=== PATIENT | female | born 1965 | race Caucasian/White ===

== ENCOUNTER 2017-11-04 14:01 | Emergency (ER) | payer BC ==
[2017-11-04] MEDS ORDERED: Dexamethasone 4 mg/ml Vial ONE (16:44)
--- NOTE | 2017-11-04 17:06 | RAD ---
SOFT TISSUE NECK TWO VIEWS: 11/04/17 HISTORY: 52-year-old female with upper respiratory infection with throat hurting. Two views of the soft tissue neck demonstrate no evidence for retropharyngeal soft tissue swelling. T he epiglottis is unremarkable. No obvious opaque foreign body. IMPRESSION: Unremarkable soft tissue neck. POS: [facility]
[2017-11-04] MEDS ORDERED: Ibuprofen 800 MG TAB ONE (17:26)
[2017-11-04 17:34] LABS: #Basophils 0.1 thou/uL (0.0-0.2); #Eosinphils 0.1 thou/uL (0.0-0.7); #Lymphocytes 2.7 thou/uL (1.20-3.40); #Monocytes 0.4 thou/uL (0.11-0.59); #Neutrophils 3.5 thou/uL (1.40-6.50); %Basophils 0.8 % (0.0-1.0); %Lymphocytes 39.8 % (21.0-51.0); %Monocytes 5.9 % (0.0-10.0); Hematocrit 46.3 % (36.0-47.0); Mean Platelet Volume 7.8 fL (7.4-10.4); Red Blood Cell (RBC) Count 4.92 mill/uL (4.20-5.40); White Blood Cell (WBC) Count 6.9 thou/uL (4.8-10.8)
[2017-11-04 17:52] LABS: Anion Gap 16 mmol/L (10-20); BUN (Urea Nitrogen) 13 mg/dL (9.8-20.1); Calc. Creatinine Clearance 0 mL/min (70-130); Calcium 9.5 mg/dL (7.8-10.44); Carbon Dioxide 25 mmol/L (22-29); Chloride 103 mmol/L (98-107); Estimated GFR-MDRD 76
== END 2017-11-04 18:42 | disposition home or self-care (01) ==
LOC: ERS 14:01
DX: J11.1 Influenza due to unidentified influenza virus with other respiratory manifestations (principal); E03.9 Hypothyroidism, unspecified; K21.9 Gastro-esophageal reflux disease without esophagitis; I10 Essential (primary) hypertension; F32.9 Major depressive disorder, single episode, unspecified; Z79.899 Other long term (current) drug therapy
CPT/HCPCS: 36415; 70360; 80048; 85025; 96372; J1100

== ENCOUNTER 2018-09-06 22:37 | Emergency (ER) | payer BC ==
[2018-09-06] MEDS ORDERED: Pantoprazole 40 MG VIAL ONE (23:21)
[2018-09-06] MEDS ORDERED: diphenhydrAMINE 50 MG/ML VIAL ONE (23:21)
[2018-09-06] MEDS ORDERED: Metoclopramide HCl 10 MG/2 ML VIAL ONE (23:21)
[2018-09-06] MEDS ORDERED: Dicyclomine 20 MG TAB ONE (23:21)
--- NOTE | 2018-09-07 00:06 | ULT ---
RIGHT UPPER QUADRANT ULTRASOUND: 09/06/18 HISTORY: Right upper quadrant abdominal pain with nausea, vomiting and diarrhea. FINDINGS: The liver demonstrates diffuse increased echogenicity with coarsened echotexture related to diffuse f atty infiltration which does limit evaluation of the hepatic parenchyma. The liver is enlarged in craft manager niocaudal dimensions measuring 22 cm. No gallbladder calculi are seen. There is no gallbladder wall thickening or pericholecystic fluid deb ntified. The common duct measures 0.5 cm in diameter which is within normal limits. The limited visualized portions of the pancreas, limited visualized portions of the IVC, and right ki dney demonstrate a normal sonographic appearance. The right kidney measures 10.7 cm in length. IMPRESSION: 1. Hepatomegaly with diffuse fatty infiltration of the liver. 2. No gallbladder calculi are seen, and the common duct is normal in caliber. POS: [facility]
== END 2018-09-07 01:20 | disposition home or self-care (01) ==
LOC: ERS 22:37
DX: R11.2 Nausea with vomiting, unspecified (principal); E03.9 Hypothyroidism, unspecified; K21.9 Gastro-esophageal reflux disease without esophagitis; I10 Essential (primary) hypertension; F32.9 Major depressive disorder, single episode, unspecified; Z79.899 Other long term (current) drug therapy
CPT/HCPCS: 76705; 96365; 96375; C9113; J1200; J2765

== ENCOUNTER 2019-07-05 19:03 | Emergency (ER) | payer BC ==
[2019-07-05 19:56] LABS: #Basophils 0.1 thou/uL (0.0-0.2); #Eosinphils 0.2 thou/uL (0.0-0.7); #Lymphocytes 3.4 thou/uL (1.20-3.40); #Monocytes 0.6 thou/uL (0.11-0.59); #Neutrophils 7.7 thou/uL (1.40-6.50); %Basophils 0.4 % (0.0-1.0); %Eosinophils 1.9 % (0.0-10.0); %Lymphocytes 28.6 % (21.0-51.0); %Monocytes 4.9 % (0.0-10.0); %Neutrophils 64.2 % (42.0-75.0); Hemoglobin 14.9 g/dL (12.0-16.0); Mean Corpuscular HGB CONC 34.1 g/dL (32.0-36.0); Mean Corpuscular Hemoglobin 31.3 pg (27.0-31.0); Mean Corpuscular Volume 91.7 fL (78.0-98.0); Mean Platelet Volume 8.9 fL (7.4-10.4); Platelet Count 251 thou/uL (130-400); RBC Distribution Width 12.3 % (11.5-14.5); Red Blood Cell (RBC) Count 4.76 mill/uL (4.20-5.40); White Blood Cell (WBC) Count 11.9 thou/uL (4.8-10.8)
[2019-07-05] MEDS ORDERED: Promethazine HCl 25 MG/ML VIAL ONE (20:12)
[2019-07-05 20:17] LABS: Acetaminophen Less than 6.0 mcg/mL (10.0-30.0); Alcohol Less than 10 mg/dL (Less than 10); Salicylate Less than 8.0 mg/dL (15.0-30.0)
[2019-07-05] MEDS ORDERED: chlordiazePOXIDE HCl 25 MG CAP ONE (20:21)
--- NOTE | 2019-07-05 20:28 | CT ---
HEAD CT WITHOUT CONTRAST: 07/05/19 COMPARISON: 09/22/14. HISTORY: Altered mental status. FINDINGS: No parenchymal hemorrhage. No extra-axial hematoma. No midline shift. Basilar cisterns are patent. Brain volume, age appropriate. Cortical dailey-white matter differentiation is preserved. No evidence of hydrocephalus. Adequate aeration of the sinuses and mastoid air cells. Calvarium is intact. IMPRESSION: No acute intracranial process. POS: [facility]
[2019-07-05 20:35] LABS: ALT (SGPT) 31 U/L (8-55); AST (SGOT) 31 U/L (5-34); Albumin 4.2 g/dL (3.5-5.0); Alkaline Phosphatase 109 U/L (40-150); Anion Gap 18 mmol/L (10-20); BUN (Urea Nitrogen) 15 mg/dL (9.8-20.1); Bilirubin, Total 0.4 mg/dL (0.2-1.2); Calc. Creatinine Clearance 0 mL/min (70-130); Calcium 9.7 mg/dL (7.8-10.44); Carbon Dioxide 21 mmol/L (22-29); Chloride 103 mmol/L (98-107); Estimated GFR-MDRD 71; Globulin 3.7 g/dL (2.4-3.5); Glucose 111 mg/dL (70-105); Magnesium 2.1 mg/dL (1.6-2.6); Potassium 3.5 mmol/L (3.5-5.1); Protein, Total 7.9 g/dL (6.0-8.3); Sodium 138 mmol/L (136-145)
[2019-07-05 20:51] LABS: Bilirubin Negative (Negative); Blood, Urine Negative (Negative); Clarity Clear (Clear); Glucose, Urine (Dipstick) Normal (Negative); Leukocyte Negative Leu/uL (Negative); Nitrite Negative (Negative); Protein, Urine (Dipstick) Negative (Neg-Trace); Urobilinogen Normal mg/dL (Less than 2)
[2019-07-05 20:52] LABS: Pregnancy Test - Urine (BHCG) Negative (Negative); Pregu Control Background? CLEAR/WHITE (CLR/WHITE); Pregu Control Bar Appear? YES (CONTROL BAR); Specific Gravity 1.021 (1.002-1.036)
[2019-07-05 20:59] LABS: Amphetamine Not Detected (NotDetected); Barbiturates Screen Not Detected (NotDetected); Benzodiazepine Screen Not Detected (NotDetected); Cocaine Metabolite Screen Not Detected (NotDetected); Medtox Control Line Valid? VALID (VALID); Medtox Reader # READER 4; Methadone Not Detected (NotDetected); Methamphetamine Not Detected (NotDetected); Opiate Screen Not Detected (NotDetected); Oxycodone Screen Not Detected (NotDetected); Phencyclidine (PCP) Not Detected (NotDetected); THC/Cannabinoid Screen Not Detected (NotDetected); Tricyclic Screen Not Detected (NotDetected)
== END 2019-07-05 22:33 | disposition home or self-care (01) ==
LOC: ERS 19:03
DX: G40.909 Epilepsy, unspecified, not intractable, without status epilepticus (principal); F43.9 Reaction to severe stress, unspecified; E03.9 Hypothyroidism, unspecified; K21.9 Gastro-esophageal reflux disease without esophagitis; I10 Essential (primary) hypertension; F32.9 Major depressive disorder, single episode, unspecified; Z79.82 Long term (current) use of aspirin; Z79.899 Other long term (current) drug therapy
CPT/HCPCS: 70450; 80053; 80306; 80307; 81003; 81025; 83735; 84146; 85025; 96374; J2550

== ENCOUNTER 2020-05-06 10:08 | Observation (INO) | payer BC ==
[2020-05-06] MEDS ORDERED: Morphine 4 MG/ML VIAL ONE ×2 (11:16→12:48)
[2020-05-06] MEDS ORDERED: Famotidine/PF 20 mg/2ml Vial ONE (11:16)
[2020-05-06] MEDS ORDERED: Ondansetron PF 4 MG/2 ML Vial ONE (11:16)
[2020-05-06 11:19] LABS: #Basophils 0.1 thou/uL (0.0-0.2); #Eosinphils 0.2 thou/uL (0.0-0.7); #Lymphocytes 2.4 thou/uL (1.20-3.40); #Monocytes 0.4 thou/uL (0.11-0.59); #Neutrophils 5.8 thou/uL (1.40-6.50); %Basophils 0.8 % (0.0-1.0); %Eosinophils 2.1 % (0.0-10.0); %Lymphocytes 26.5 % (21.0-51.0); %Monocytes 4.9 % (0.0-10.0); %Neutrophils 65.6 % (42.0-75.0); Hemoglobin 15.4 g/dL (12.0-16.0); Mean Corpuscular HGB CONC 32.5 g/dL (32.0-36.0); Mean Corpuscular Hemoglobin 30.8 pg (27.0-31.0); Mean Corpuscular Volume 94.8 fL (78.0-98.0); Mean Platelet Volume 8.8 fL (7.4-10.4); Platelet Count 289 thou/uL (130-400); RBC Distribution Width 12.4 % (11.5-14.5); Red Blood Cell (RBC) Count 5.02 mill/uL (4.20-5.40); White Blood Cell (WBC) Count 8.9 thou/uL (4.8-10.8)
[2020-05-06 11:45] LABS: ALT (SGPT) 55 U/L (8-55); AST (SGOT) 50 U/L (5-34); Albumin 4.4 g/dL (3.5-5.0); Alkaline Phosphatase 101 U/L (40-110); Anion Gap 15 mmol/L (10-20); BUN (Urea Nitrogen) 10 mg/dL (9.8-20.1); Bilirubin, Total 0.3 mg/dL (0.2-1.2); Calc. Creatinine Clearance 0 mL/min (70-130); Calcium 9.9 mg/dL (7.8-10.44); Carbon Dioxide 27 mmol/L (22-29); Chloride 101 mmol/L (98-107); Estimated GFR-MDRD 68; Globulin 3.8 g/dL (2.4-3.5); Glucose 113 mg/dL (70-105); Lipase 36 U/L (8-78); Potassium 3.5 mmol/L (3.5-5.1); Protein, Total 8.2 g/dL (6.0-8.3); Sodium 139 mmol/L (136-145)
--- NOTE | 2020-05-06 11:54 | ULT ---
EXAM: US Gallbladder RUQ CLINICAL HISTORY: Epigastric pain and right upper quadrant pain.. COMPARISON: 09/06/2018 FINDINGS: Pancreas: The head and proximal pancreatic body have a normal echotexture. Liver:Diffuse echotexture which may be due to hepatic steatosis or hepatocellular disease. Limited ev aluation for hepatic masses and intrahepatic biliary dilatation. Right hepatic lobe: 20.5 cm Gallbladder: No sonographic evidence of cholelithiasis, gallbladder wall thickening or pericholecysti c fluid. Cook's sign:Negative Portal Vein: Patent. Appropriate directional flow Bile ducts: 0.36 cm common bile duct diameter Right kidney: No hydronephrosis. Right kidney measures 4.4 x 5.7 x 11.8 cm in length. There is right renal cortical thinning. IMPRESSION: 1. No sonographic evidence of cholelithiasis or cholecystitis 2. Heterogeneous echotexture of liver which may be due to hepatic steatosis or hepatocellular disease . Correlation made with a CT from 05/04/2020 does favor hepatic steatosis. Hepatomegaly.
[2020-05-06 12:22] LABS: Bilirubin Negative (Negative); Blood, Urine Negative (Negative); Clarity Clear (Clear); Glucose, Urine (Dipstick) Normal (Negative); Leukocyte Negative Leu/uL (Negative); Nitrite Negative (Negative); Protein, Urine (Dipstick) 20 mg/dL (Neg-Trace)
[2020-05-06] MEDS ORDERED: Ketorolac Tromethamine 30 MG/ML VIAL ONE (12:52)
--- NOTE | 2020-05-06 13:39 | CT ---
CT OF THE ABDOMEN AND PELVIS WITH IV CONTRAST INDICATION: Abdominal Pain COMPARISON: CT abdomen and pelvis dated May 04, 2020 FINDINGS: ABDOMEN: Lung bases: Clear Liver: Fatty infiltration Gallbladder: Normal appearing. Pancreas: Normal. Adrenal glands: Normal. Spleen: Normal. Kidneys and ureters: Left renal cyst is stable. No hydronephrosis is evident. Vasculature: There is a retroaortic left renal vein. There are mild vascular calcifications seen invo lving the visualized vasculature. Lymph nodes:No lymphadenopathy. Free fluid in abdomen:No free fluid is evident. PELVIS: Small and large bowel: Normal Appendix:Normal Bladder: The bladder is decompressed Rectal and perirectal soft tissues:Normal. Reproductive structures: Normal. Free fluid in pelvis: No free fluid is evident. Lymphadenopathy pelvis: No lymphadenopathy is evident. Osseous structures: No acute osseous abnormality. No destructive osteolytic or osteoblastic lesion i s identified. There is scattered degenerative and osteoarthritic changes. Soft tissues:Normal. IMPRESSION: 1. Stable fatty infiltration of the liver. 2. Stable left renal cyst.
[2020-05-06] MEDS ORDERED: Metoclopramide HCl 10 MG/2 ML VIAL ONE (14:32)
[2020-05-06] MEDS ORDERED: Iopamidol-370 76% 500 ML 1 ML ONE (15:50)
[2020-05-06] MEDS ORDERED: Guaifenesin DM 100-10/5 ML UDCUP PO PRN (16:30)
[2020-05-06] MEDS ORDERED: Morphine 4 MG/ML VIAL SLOW IVP PRN (16:30)
[2020-05-06] MEDS ORDERED: Ondansetron PF 4 MG/2 ML Vial IVP PRN (16:30)
[2020-05-06] MEDS ORDERED: Acetaminophen 325 MG TAB PO PRN (16:30)
[2020-05-06] MEDS ORDERED: traMADol HCl 50 MG TAB PO PRN ×2 (16:30)
[2020-05-06] MEDS ORDERED: Zolpidem Tartrate 5 MG TAB PO PRN (16:30)
[2020-05-06] MEDS ORDERED: Acetaminophen 650 MG Suppository PR PRN (16:30)
[2020-05-06] MEDS ORDERED: Senokot S 8.6-50 MG TAB PO PRN (16:30)
[2020-05-06 16:31] VITALS: BMI 44.4
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
[2020-05-06] MEDS: DULoxetine 30 MG CAP PO SCH (17:20)
[2020-05-06] MEDS: Ondansetron ODT 4 MG TAB PO PRN (18:53)
[2020-05-06] MEDS: Pantoprazole 40 MG VIAL IVP SCH (19:34)
[2020-05-07] MEDS: Ondansetron ODT 4 MG TAB PO PRN ×2 (00:08→11:48)
[2020-05-07 06:25] LABS: #Basophils 0.1 thou/uL (0.0-0.2); #Eosinphils 0.4 thou/uL (0.0-0.7); #Lymphocytes 3.3 thou/uL (1.20-3.40); #Monocytes 0.5 thou/uL (0.11-0.59); %Basophils 0.9 % (0.0-1.0); %Monocytes 4.7 % (0.0-10.0); %Neutrophils 58.5 % (42.0-75.0); Hemoglobin 13.2 g/dL (12.0-16.0); Mean Corpuscular HGB CONC 32.2 g/dL (32.0-36.0); Mean Corpuscular Volume 93.2 fL (78.0-98.0); Mean Platelet Volume 8.4 fL (7.4-10.4); Platelet Count 278 thou/uL (130-400); RBC Distribution Width 12.3 % (11.5-14.5); White Blood Cell (WBC) Count 10.3 thou/uL (4.8-10.8)
[2020-05-07 06:58] LABS: Anion Gap 10 mmol/L (10-20); BUN (Urea Nitrogen) 13 mg/dL (9.8-20.1); Calc. Creatinine Clearance 146 mL/min (70-130); Calcium 8.7 mg/dL (7.8-10.44); Carbon Dioxide 25 mmol/L (22-29); Chloride 105 mmol/L (98-107); Estimated GFR-MDRD 76; Glucose 103 mg/dL (70-105); Potassium 3.2 mmol/L (3.5-5.1); Sodium 137 mmol/L (136-145)
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
[2020-05-07] MEDS ORDERED: Ondansetron HCl/PF 4 MG/2 ML Vial IVP PRN (09:02)
[2020-05-07] MEDS ORDERED: Meperidine HCl/PF 25 MG/ML VIAL SLOW IVP PRN (09:02)
[2020-05-07] MEDS ORDERED: Promethazine HCl 25 MG/ML VIAL IM PRN (09:02)
[2020-05-07] MEDS ORDERED: Promethazine HCl 25 MG/ML VIAL SLOW IVP PRN (09:02)
[2020-05-07] MEDS ORDERED: HYDROmorphone 2 MG/ML VIAL SLOW IVP PRN (09:02)
[2020-05-07] MEDS ORDERED: Ondansetron PF 4 MG/2 ML Vial ONE ×2 (09:08→10:26)
[2020-05-07] MEDS ORDERED: Fentanyl 100 MCG/2 ML VIAL ONE (09:08)
[2020-05-07] MEDS ORDERED: Morphine 2 MG/ML SYRINGE SLOW IVP PRN (09:15)
[2020-05-07] MEDS: Thyroid 60 MG TAB PO SCH (09:55)
[2020-05-07] MEDS: Chlorthalidone 25 MG TAB PO SCH (09:55)
[2020-05-07] MEDS: Aspirin 81 mg Enteric Coated Tablet PO SCH (09:55)
[2020-05-07] MEDS ORDERED: Potassium Citrate 10 MEQ TAB PO SCH (10:00)
[2020-05-07] MEDS ORDERED: PROPOFOL 200 MG/20 ML VIAL ONE (10:26)
[2020-05-07] MEDS: Pantoprazole 40 MG VIAL IVP SCH (10:40)
--- NOTE | 2020-05-07 11:36 | OP ---
DATE OF PROCEDURE: 05/07/2020 PROCEDURES PERFORMED: Esophagogastroduodenoscopy with biopsy. PREOPERATIVE DIAGNOSIS: Epigastric abdominal pain on ibuprofen. DESCRIPTION OF PROCEDURE: Informed consent was obtained from the patient. She was sedated with total intravenous anesthesia. The bite block was placed and the endoscope was advanced easily to the second portion of the duodenum and retroflexion was performed in the stomach. The esophagus was normal. The GE junction was normal. The stomach was normal including retroflexed views. The pylorus and first and second portions of the duodenum were normal. Duodenal biopsies were taken to rule out celiac disease in light of past duodenal biopsy showing increased intraepithelial lymphocytosis. IMPRESSION: 1. Normal esophagogastroduodenoscopy. 2. Source of her abdominal pain is not identified by this exam. She has had a couple of negative CT scans. She has had significant anxiety with this and social issues along with positive cocaine and PCP. This is likely functional pain. 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 However, her previous colonoscopy was negative. She is due for a colonoscopy now. Given her abdominal pain of undetermined etiology, otherwise with multiple CT scans and multiple ER visits and negative endoscopy, I think it would be reasonable to follow through with colonoscopy now to complete her evaluation. RECOMMENDATIONS: Bowel prep this evening for a colonoscopy tomorrow morning. If the colonoscopy is negative, then she can likely discharge home later tomorrow morning or early afternoon. Job ID: [id number]
[2020-05-07 12:17] LABS: Amphetamine Not Detected (NotDetected); Barbiturates Screen Not Detected (NotDetected); Benzodiazepine Screen Not Detected (NotDetected); Cocaine Metabolite Screen Not Detected (NotDetected); Medtox Control Line Valid? VALID (VALID); Medtox Reader # READER 1; Methadone Not Detected (NotDetected); Methamphetamine Not Detected (NotDetected); Opiate Screen Detected (NotDetected); Oxycodone Screen Not Detected (NotDetected); Phencyclidine (PCP) Not Detected (NotDetected); THC/Cannabinoid Screen Not Detected (NotDetected); Tricyclic Screen Not Detected (NotDetected)
--- NOTE | 2020-05-07 14:17 | PDOC.HOSPP ---
- Subjective Encounter Date: 05/07/20 Encounter Time: 09:00 Subjective: pt is quite upset how come her drug screen +ve. wants blood work repeat and test for drugs in the blood? explained to the pt only in urine we look for drug metabolites and we can repeat the UA/UDS. stomach pain w.. all 'these stress'. plan for cscope in am. - Objective Vital Signs & Weight: Vital Signs (12 hours) Temp Pulse Resp BP Pulse Ox 05/07/20 11:30 98.2 F 73 16 94/65 96 05/07/20 09:50 98.3 F 75 18 115/75 95 05/07/20 06:58 97.8 F 68 15 97/66 96 05/07/20 06:45 97.7 F 65 18 110/75 95 05/07/20 03:58 97.7 F 65 18 92/63 93 L Weight Weight 251 lb I&O: 05/06/20 05/07/20 05/08/20 06:59 06:59 06:59 Intake Total 932 Balance 932 Result Diagrams: 05/07/20 06:13 05/07/20 06:13 Hospitalist ROS - Medication Medications: Active Medications Generic Name Dose Route Start Last Admin Trade Name Freq PRN Reason Stop Dose Admin Aspirin 81 mg 05/07/20 09:00 05/07/20 09:55 Ecotrin PO Not Given DAILY SUNNY Chlorthalidone 25 mg 05/07/20 09:00 05/07/20 09:55 [place] PO 25 mg DAILY SUNNY Administration Duloxetine HCl 30 mg 05/06/20 18:00 05/06/20 17:20 Cymbalta PO Not Given Q2DAYS SUNNY Ondansetron HCl 4 mg 05/06/20 16:30 05/07/20 11:48 Zofran Odt PO 4 mg Q6H PRN Administration Nausea/Vomiting Thyroid 60 mg 05/07/20 09:00 05/07/20 09:55 [place] Thyroid PO 60 mg DAILY SUNNY Administration - Exam General Appearance: awake alert General - other findings: agitated, Eye: PERRL ENT: normocephalic atraumatic Neck: supple Heart: RRR, normal peripheral pulses Respiratory: CTAB, normal chest expansion Gastrointestinal: soft, normal bowel sounds Neurological: no focal deficits Hosp A/P - Plan Epigstric pain --poss..functional pain - prior workup with CTs and cscopes neg s/p EGD neg Cocaine +ve - usually metabolites stay in the urine for 7 days, if she did use 6 days ago, then y'day +ve and today neg. --could be a possibility. -but cannot explain phencyclidine +ve - got morphine y'day in the ER --opiates +ve - do we have to think about celiac dz, microscopic colitis? - cscope tomorrow.
[2020-05-07] MEDS ORDERED: GoLYTELY 4,000 ml Bottle PO SCH (17:00)
[2020-05-08] MEDS: Ondansetron ODT 4 MG TAB PO PRN (06:10)
[2020-05-08] MEDS ORDERED: Fentanyl 100 MCG/2 ML VIAL ONE (09:37)
--- NOTE | 2020-05-08 09:59 | OP ---
DATE OF PROCEDURE: 05/08/2020 PROCEDURE PERFORMED: Colonoscopy. PREOPERATIVE DIAGNOSES: Epigastric and lower abdominal pain. Also for colon cancer screening. DESCRIPTION OF PROCEDURE: Informed consent was obtained from the patient. She was sedated with total intravenous anesthesia. The rectal exam was performed and was normal. The colonoscope was advanced to the terminal ileum without difficulty. There was a fairly sharp flexure at the rectosigmoid. The preparation quality was good. The mucosa of the terminal ileum was normal. The ileocecal valve and appendiceal orifice were clearly identified. The colonic mucosa was normal throughout. Retroflexed views in the rectum were normal. IMPRESSION: 1. Normal colonoscopy to the terminal ileum. 2. Her abdominal pain appears to be functional in nature. She has had 2 CT scans of her abdomen and pelvis, EGD, and colonoscopy, all of which were negative. RECOMMENDATIONS: 1. We will advance her diet today and plan discharge from the hospital. She can follow up with Dr. Hammond for outpatient management. 2. Of note, the urine tox screen was repeated yesterday, and that time it was negative for PCP or cocaine. The original lab was likely a false positive. 3. Repeat colonoscopy in 10 years for screening. Job ID: [id number] [facility]
[2020-05-08] MEDS ORDERED: PROPOFOL 200 MG/20 ML VIAL ONE (10:35)
[2020-05-08] MEDS: Thyroid 60 MG TAB PO SCH (11:23)
[2020-05-08] MEDS: Chlorthalidone 25 MG TAB PO SCH (11:23)
[2020-05-08] MEDS: Aspirin 81 mg Enteric Coated Tablet PO SCH (11:23)
--- NOTE | 2020-05-08 13:28 | PDOC.HOSPP ---
- Subjective Encounter Date: 05/08/20 Encounter Time: 10:30 Subjective: had cscope this am, still abd pain on the right quadrants. comofrtable, started back on diet. she wants to leave tomorrow as her spouse has to ocme from [facility]. - Objective Vital Signs & Weight: Vital Signs (12 hours) Temp Pulse Resp BP BP Pulse Ox 05/08/20 10:20 97.7 F 70 20 117/76 98 05/08/20 07:20 97.8 F 66 20 101/68 96 05/08/20 04:00 97.9 F 56 L 18 102/68 94 L Weight Weight 251 lb I&O: 05/07/20 05/08/20 05/09/20 06:59 06:59 06:59 Intake Total 932 800 Output Total 1000 Balance 932 -200 Result Diagrams: 05/07/20 06:13 05/07/20 06:13 Hospitalist ROS - Medication Medications: Active Medications Generic Name Dose Route Start Last Admin Trade Name Freq PRN Reason Stop Dose Admin Aspirin 81 mg 05/07/20 09:00 05/08/20 11:23 Ecotrin PO Not Given DAILY SUNNY Chlorthalidone 25 mg 05/07/20 09:00 05/08/20 11:23 [place] PO Not Given DAILY SUNNY Duloxetine HCl 30 mg 05/06/20 18:00 05/06/20 17:20 Cymbalta PO Not Given Q2DAYS SUNNY Ondansetron HCl 4 mg 05/06/20 16:30 05/08/20 06:10 Zofran Odt PO 4 mg Q6H PRN Administration Nausea/Vomiting Pantoprazole Sodium 40 mg 05/07/20 21:00 05/08/20 11:23 Protonix PO 40 mg BID SUNNY Administration Thyroid 60 mg 05/07/20 09:00 05/08/20 11:23 [place] Thyroid PO 60 mg DAILY SUNNY Administration - Exam General Appearance: NAD, awake alert Eye: PERRL ENT: normocephalic atraumatic Neck: supple Heart: RRR Respiratory: CTAB Gastrointestinal: soft, normal bowel sounds Extremities: 1+ LE edema Psychiatric: A&O x 3 Hosp A/P - Plan Epigstric pain --poss..functional pain - prior workup with 2 CTs of abd/pelvis and cscopes neg - now s/p EGD neg Cocaine +ve - usually metabolites stay in the urine for 7 days, if she did use 6 days ago, then y'day +ve and today neg. --could be a possibility. -but cannot explain phencyclidine +ve - got morphine y'day in the ER --opiates +ve it appeared that urine drug screen for cocaine likley false positive. pl refer lab report of - cscope neg. today - do we have to think about celiac dz, microscopic colitis? home in am.
[2020-05-08] MEDS ORDERED: Mag-Al 1200 mg/1200 mg/30 ML UDCUP PO PRN (17:54)
[2020-05-08] MEDS: DULoxetine 30 MG CAP PO SCH (19:22)
[2020-05-09 06:01] LABS: Anion Gap 13 mmol/L (10-20); BUN (Urea Nitrogen) 11 mg/dL (9.8-20.1); Calc. Creatinine Clearance 130 mL/min (70-130); Calcium 8.9 mg/dL (7.8-10.44); Carbon Dioxide 25 mmol/L (22-29); Chloride 106 mmol/L (98-107); Estimated GFR-MDRD 66; Glucose 113 mg/dL (70-105); Potassium 3.8 mmol/L (3.5-5.1); Sodium 140 mmol/L (136-145)
--- NOTE | 2020-05-09 09:32 | PRG ---
DATE OF SERVICE: 05/09/2020 SUBJECTIVE: Ms. Pool ate ice cream last night and shortly after that developed right upper quadrant pain that radiated through to her mid back. No further nausea or vomiting. This morning, she ate a small amount of sausage, egg, and muffin, but did not like the taste of sausage and eggs, only had a bite. She still has some aching pain in the right upper to right mid abdomen. OBJECTIVE: VITAL SIGNS: Temperature 97.7, pulse 60, blood pressure 105/71. GENERAL: She is in no acute distress. Alert and oriented x3. LUNGS: Clear to auscultation bilaterally. HEART: Regular rate and rhythm without murmur. ABDOMEN: Soft. Mild tenderness in the right abdomen. Bowel sounds are present. EXTREMITIES: No lower extremity edema. LABORATORY DATA: White blood cell count 10.3, hemoglobin 13.2, platelets 278. Creatinine 0.89. LFTs yesterday showed bilirubin of 0.3, AST 50, ALT 55, alkaline phosphatase 101. IMPRESSION: 1. Right upper quadrant pain that radiates through to her mid back after eating ice cream. Her ultrasound was negative for gallstones. However, her symptoms do sound more suggestive of gallbladder origin. She has had a couple of CT scans and ultrasound, upper endoscopy, and lower endoscopy, all of which have been negative. Given the significant worsening of symptoms last night after eating ice cream, we will follow through with HIDA scan tomorrow morning. 2. Fatty liver by imaging. Her AST and ALT are in the 2 times upper limit of normal range. We discussed diet modification, weight loss, and exercise. RECOMMENDATION: HIDA scan tomorrow morning. Job ID: [id number]
[2020-05-09] MEDS: Aspirin 81 mg Enteric Coated Tablet PO SCH (09:57)
[2020-05-09] MEDS: Chlorthalidone 25 MG TAB PO SCH (09:58)
[2020-05-09] MEDS: Thyroid 60 MG TAB PO SCH (09:58)
--- NOTE | 2020-05-09 14:49 | PDOC.HOSPP ---
- Subjective Encounter Date: 05/09/20 Encounter Time: 10:30 Subjective: pt has no c/o, plan for HIDA and aware of that. no abd discomfort this am. tolerating the diet. - Objective Vital Signs & Weight: Vital Signs (12 hours) Temp Pulse Resp BP Pulse Ox 05/09/20 11:35 97.6 F 67 16 120/76 94 L 05/09/20 07:32 97.7 F 60 16 105/71 92 L 05/09/20 03:43 98.0 F 71 18 110/68 95 Weight Weight 251 lb I&O: 05/08/20 05/09/20 05/10/20 06:59 06:59 06:59 Intake Total 800 1080 Output Total 1000 Balance -200 1080 Result Diagrams: 05/07/20 06:13 05/09/20 05:06 Hospitalist ROS - Medication Medications: Active Medications Generic Name Dose Route Start Last Admin Trade Name Freq PRN Reason Stop Dose Admin Aspirin 81 mg 05/07/20 09:00 05/09/20 09:57 Ecotrin PO 81 mg DAILY SUNNY Administration Chlorthalidone 25 mg 05/07/20 09:00 05/09/20 09:58 [place] PO Not Given DAILY SUNNY Duloxetine HCl 30 mg 05/06/20 18:00 05/08/20 19:22 Cymbalta PO Not Given Q2DAYS SUNNY Ondansetron HCl 4 mg 05/06/20 16:30 05/08/20 06:10 Zofran Odt PO 4 mg Q6H PRN Administration Nausea/Vomiting Pantoprazole Sodium 40 mg 05/07/20 21:00 05/09/20 09:57 Protonix PO 40 mg BID SUNNY Administration Thyroid 60 mg 05/07/20 09:00 05/09/20 09:58 [place] Thyroid PO 60 mg DAILY SUNNY Administration - Exam General Appearance: NAD, awake alert Eye: PERRL ENT: normocephalic atraumatic Neck: supple Heart: RRR Respiratory: CTAB, normal chest expansion Gastrointestinal: soft, normal bowel sounds Neurological: no focal deficits Hosp A/P - Plan Epigstric pain --poss..functional pain - prior workup with 2 CTs of abd/pelvis and cscopes neg - now s/p EGD neg Cocaine +ve - usually metabolites stay in the urine for 7 days, if she did use 6 days ago, then y'day +ve and today neg. --could be a possibility. -but cannot explain phencyclidine +ve - got morphine y'day in the ER --opiates +ve it appeared that urine drug screen for cocaine likley false positive. pl refer lab report of - cscope neg. today - do we have to think about celiac dz, microscopic colitis? HIDA scan planned for am. NPO afer m/n. -currently she is not on any narcotics.
[2020-05-09] MEDS ORDERED: DULoxetine 30 MG CAP PO SCH (19:00)
[2020-05-10 06:49] LABS: Anion Gap 12 mmol/L (10-20); BUN (Urea Nitrogen) 17 mg/dL (9.8-20.1); Calc. Creatinine Clearance 139 mL/min (70-130); Calcium 9.3 mg/dL (7.8-10.44); Carbon Dioxide 25 mmol/L (22-29); Chloride 107 mmol/L (98-107); Estimated GFR-MDRD 72; Glucose 113 mg/dL (70-105); Potassium 4.1 mmol/L (3.5-5.1); Sodium 140 mmol/L (136-145)
[2020-05-10] MEDS: Chlorthalidone 25 MG TAB PO SCH (09:00)
[2020-05-10 11:27] VITALS: BP 128/83; TEMP 97.8
--- NOTE | 2020-05-10 11:45 | NM ---
HEPATOBILIARY SCAN: INDICATIONS: Right upper quadrant pain. TECHNIQUE: The patient was given 5.5 millicuries technetium mebrofenin IV. Sequential imaging obtained and gallb ladder ejection fraction calculated. FINDINGS: Initial images show normal liver activity. The gallbladder begins to visualize by [address] activity is confirmed. Intestinal activity is confirmed. Gallbladder ejection fraction is calculated after the administration of CCK according to protocol. Gallbladder ejection fraction is recorded at 99%. IMPRESSION: 1. Normal visualization of the gallbladder. 2. Normal gallbladder ejection fraction. POS: AGW
[2020-05-10] MEDS: Aspirin 81 mg Enteric Coated Tablet PO SCH (11:51)
[2020-05-10] MEDS: Thyroid 60 MG TAB PO SCH (11:51)
--- NOTE | 2020-05-10 15:14 | PRG ---
DATE OF SERVICE: 05/10/2020 SUBJECTIVE: Ms. Pool feels better today. There is some mild right-sided pain. She is tolerating her diet well. OBJECTIVE: VITAL SIGNS: Temperature 97.8, pulse 67, and blood pressure 128/83. GENERAL: She is in no acute distress. Alert and oriented x3. LUNGS: Clear to auscultation bilaterally. HEART: Regular rate and rhythm without murmur. ABDOMEN: With minimal tenderness in the right upper abdomen without guarding. Bowel sounds are present. EXTREMITIES: No lower extremity edema. LABORATORY DATA: Her creatinine 0.83. IMPRESSION: Right upper quadrant pain. This appears to be a functional pain, likely irritable bowel syndrome, exacerbated with her anxiety. CT scans have been negative x2. Upper and lower endoscopy were negative. She had a HIDA scan today, which was normal. RECOMMENDATIONS: She can discharge home today and follow up in the office with Dr. Hammond around a month first further symptomatic treatment of her irritable bowel. Job ID: [id number]
--- NOTE | 2020-05-11 12:32 | DIS ---
DATE OF ADMISSION: 05/06/2020 DATE OF DISCHARGE: 05/10/2020 DISCHARGE MEDICATIONS: No change in her previous home medications. Cymbalta 30 mg daily, omeprazole 20 mg daily, [place] Thyroid 60 mcg daily, chlorthalidone 25 mg daily, albuterol 2 puffs inhalation b.i.d. as needed. DISCHARGE DIAGNOSES: 1. Functional right quadrant pain. Previous workups including two CT scans and C-scopes negative. Current EGD also negative. 2. HIDA scan has showed normal gallbladder ejection fraction. Consult with Dr. Kyler Jenkins, nutrition internship. PHYSICAL EXAMINATION: VITAL SIGNS: On the day of discharge, temperature 97.8, pulse 67, blood pressure 128/83, saturating 96% on room air. GENERAL: The patient just returned from her HIDA scan. She did not have any right quadrant pain overnight; however, she felt some discomfort during the scan. Otherwise, she is quite anxious to have some lunch. CARDIOVASCULAR: Regular rate and rhythm without murmurs, rubs, or gallops. LUNGS: Clear. ABDOMEN: Body habitus, protuberant abdomen, but no tenderness or guarding. HOSPITAL COURSE: This is a 55-year-old female, admitted on May 06 with abdominal pain, mostly in the right quadrants. She had heavy alcohol intake roughly 2 weeks ago along with NSAIDs. She undergone EGD, which was pretty benign. The previous workup included two CT scans, and quite unrevealing. She is supposed to have a colorectal cancer screening and the last colonoscopy in 2012. Started on a PPI. Urine tox screen was repeated because her first test seems to have cocaine positive, however, the patient denies that she has not used any drugs. Repeat test was negative for PCP as well as cocaine metabolites, possibility would be false-positive nature, the first one. Her GI workup is complete during this stay, and if she has any ongoing symptoms, other etiologies has to be explored. Her LFTs are in the normal range. Lipase is 36. She had mild hypokalemia that has resolved. She is clinically stable enough to go home today. DISCHARGE INSTRUCTIONS: Activity as tolerated. Regular diet. Follow up with the PCP in one week. TIME SPENT: Discharge time took over 35 minutes. Job ID: [id number] MTDD
== END 2020-05-10 15:26 | disposition home or self-care (01) ==
LOC: ERS 10:08 → T4-B 14:23
PROVIDERS: ADMIT Emergency Medicine; ATTEND Emergency Medicine
PROC: 0DB98ZX Excision of Duodenum, Via Natural or Artificial Opening Endoscopic, Diagnostic (ICD-10-PCS; principal; 2020-05-07)
PROC: 0DJD8ZZ Inspection of Lower Intestinal Tract, Via Natural or Artificial Opening Endoscopic (ICD-10-PCS; 2020-05-08)
DX: R10.13 Epigastric pain (principal); R10.11 Right upper quadrant pain; R10.30 Lower abdominal pain, unspecified; D72.820 Lymphocytosis (symptomatic); K76.0 Fatty (change of) liver, not elsewhere classified; I10 Essential (primary) hypertension; E03.9 Hypothyroidism, unspecified; F41.9 Anxiety disorder, unspecified; F32.9 Major depressive disorder, single episode, unspecified; N28.1 Cyst of kidney, acquired; K21.9 Gastro-esophageal reflux disease without esophagitis; Z87.891 Personal history of nicotine dependence; Z79.82 Long term (current) use of aspirin; Z79.899 Other long term (current) drug therapy; Z88.2 Allergy status to sulfonamides
CPT/HCPCS: 36415; 74177; 76705; 78227; 80048; 80053; 80306; 81003; 83690; 84484; 85025; 88305; 93005; 96365; 96375; 96376; A9537; C9113; G0378; J1885; J2270; J2405; J2704; J2765; J3010; Q0162; Q9967; S0028

== ENCOUNTER 2021-11-25 09:17 | Outpatient (CLI) | payer BC | END 2021-11-25 09:18 | disposition home or self-care (01) | LOC: BICMAMMO 09:17 | PROVIDERS: ATTEND Nurse Practitioner | DX: Z12.31 Encounter for screening mammogram for malignant neoplasm of breast (principal); Z98.82 Breast implant status | CPT/HCPCS: 77063; 77067 ==

== ENCOUNTER 2022-12-07 12:34 | Outpatient (CLI) | payer BC | END 2022-12-07 12:35 | disposition home or self-care (01) | LOC: BICMAMMO 12:34 | PROVIDERS: ATTEND Nurse Practitioner | DX: Z12.31 Encounter for screening mammogram for malignant neoplasm of breast (principal); Z98.82 Breast implant status | CPT/HCPCS: 77063; 77067 ==

== ENCOUNTER 2023-12-08 09:42 | Outpatient (CLI) | payer BC | END 2023-12-08 09:43 | disposition home or self-care (01) | LOC: BICMAMMO 09:42 | PROVIDERS: ATTEND Nurse Practitioner | DX: Z12.31 Encounter for screening mammogram for malignant neoplasm of breast (principal); Z98.890 Other specified postprocedural states | CPT/HCPCS: 77063; 77067 ==

== ENCOUNTER 2024-12-09 07:49 | Outpatient (CLI) | payer BC, OTHER | END 2024-12-09 07:50 | disposition home or self-care (01) | LOC: BICMAMMO 07:49 | PROVIDERS: ATTEND Physician Assistant | DX: Z12.31 Encounter for screening mammogram for malignant neoplasm of breast (principal); N63.23 Unspecified lump in the left breast, lower outer quadrant | CPT/HCPCS: 77063; 77067 ==

== ENCOUNTER 2024-12-11 13:04 | Outpatient (CLI) | payer OTHER | END 2024-12-11 13:05 | disposition home or self-care (01) | LOC: BICULT 13:04 | PROVIDERS: ATTEND Physician Assistant | DX: N63.25 Unspecified lump in the left breast, overlapping quadrants (principal) ==